=== PATIENT | female | born 1955 | race Caucasian/White ===

== ENCOUNTER → 2024-01-14 08:46 | Outpatient (REF) | payer OTHER, SELFPAY | LOC: WDC 08:46 | PROVIDERS: ATTENDING PHYSICIAN Surgery; FAMILY PHYSICIAN Family Medicine | DX: N64.4 Mastodynia (principal) | CPT/HCPCS: 76642 ==

== ENCOUNTER 2024-02-23 17:25 | Inpatient (IN) | payer OTHER, SELFPAY ==
[2024-02-23] VITALS (9 sets, daily range): BP systolic 114–168; BP diastolic 57–86; BMI 36.1
[2024-02-23 14:06] LABS: COVID-19 Antigen Negative (Negative)
--- NOTE | 2024-02-23 14:15 | ED.GENMED ---
History of Present Illness
General
Chief Complaint: Cough
Source: patient
Exam Limitations: none
Time Seen by Provider: 02/23/24 13:23
Nursing documentation reviewed up to this point in time: agreed with
History of Present Illness
History of Present Illness:
pt is a 68 y/o F with h/o COPD, hld, htn
here with dyspnea x 1 week
pt was in [place] last week and wa sdoing a lot of [employer] tours and noticed that she was hving some inc sob with exertion but just thought it was because of the tours being intensive
she then developed cold xs5 days ago: cough, congestion
got worse this week with LEA/dyspnea with conversation,
and then cough worse
called pcp an dwa put on paxlovdi after she had a covid test faint pos
she started having fever last night temp 102 this am, treated with tylenol last dose 5 am
pt has not had chest pain, leg swelling, vomiting, diarrhea
she has never had dvt/pe
no CAD history
Past History
Past History
ED Past Medical History: None
ED Past Surgical History: None (Kidney tumor removed)
Social History
Tobacco: Non-smoker
Alcohol: None
Review of Systems
Review of Systems
Allergies reviewed?: Yes
All Other Systems: Not applicable
Phy Exam
Physical Exam
Physical Exam:
GENERAL: Alert , tachypneic
EYE: pupils equal and reactive
NECK: Supple
ENT: o/p clr, mmm.
CARDIAC: Regular rate and rhythm .
LUNGS: wheezing end epx with cough, rales L base; tachypneic
ABDOMEN: Soft, without focal tenderness, no r/g, no cvat, normal bowel sounds
NEUROLOGICAL: Alert and oriented, no focal neuro deficits
SKIN: Warm and dry, skin intact.
MUSCULOSKELETAL: No edema, well perfused. neg samuel's sign
PSYCH: Normal and appropriate interaction.
Course
Orders/Labs/Results
Orders:
Orders
02/23/24 13:38
CXR2 [CR Chest - 2 Views ] Urgent
Comment:
Reason For Exam: wheezing and SOB
02/23/24 13:39
COVID-19 Antigen Urgent
Source: Nasal Swab
02/23/24 14:13
Electrocardiogram (*1) Urgent
Reason for Study: Shortness of Breath
EKG- Treatment ONCE
Ipratropium/Albuterol Sulfate [Duoneb] 3 ml INH R NOW STA
02/23/24 14:32
Basic Metabolic Panel Urgent
Complete Blood Count/With Diff Urgent
NT-proBNP Urgent
Troponin I Urgent
Influenza A+B Rapid Molecular Urgent
CARLOS Source: Nasal Swab
Specimen Description:
02/23/24 15:38
Azithromycin 500 mg/250 ml [Zithromax Infusion] 500 mg in 250 ml IV NOW
CefTRIAXone [Rocephin] 1,000 mg IV NOW STA
Dexamethasone Sod Phosphate [Decadron] 6 mg IV NOW STA
02/23/24 15:39
CMP [Comprehensive Metabolic Panel] Urgent
02/23/24 15:44
Ipratropium/Albuterol Sulfate [Duoneb] 3 ml INH R NOW STA
02/23/24 16:23
Admit/Transfer Patient As Directed
Co-Sign Provider:
Level of Care: Inpatient admission
Assign to:: Medical/Surgical
Physician / Group: reji
Diagnosis: pneumonia, copd exacerbation
Reason for Hospitalization: pneumonia, copd exacerbation
Expected length of stay greater than two midnights?: Yes
ELOS- Estimated Length of Stay in days: 2
I certify the patient meets the requirements for IP care: Yes
PRN Pain Medication Management As Directed
May give lesser potent ordered pain med per pt: Yes
preference::
Protocol:: Medication orders for pain may be administered in a
manner that supports deferring to patient preference
when the pt is:
- Requesting an ordered lesser potent pain medication.
Least to most potent pain medications are defined
as: acetaminophen < NSAID < tramadol < opioids
(morphine, oxycodone, hydromorphone).
- Requesting a lesser dose of the same medication IF
ORDERED.
- Requesting a less intrusive route of administration
if both routes are prescribed by the provider (PO <
IV).
02/23/24 16:24
Code Status As Directed
Resuscitation Status: Full Code
02/23/24 16:26
Respiratory Culture/Gram Stain Urgent
CARLOS Source: Sputum
Specimen Description:
Abnormal Lab Results
02/23/24 02/23/24
14:32 15:39
Absolute Lymphs (auto) 0.8 L 10^3/uL
(1.2-3.4)
Absolute Monos (auto) 1.4 H 10^3/uL
(0.1-0.6)
Lymphocytes % 8.7 L %
(20.5-51.1)
Monocytes % 15.6 H %
(1.7-9.3)
Carbon Dioxide 18 L mmol/L 18 L mmol/L
(22-30) (22-30)
Glucose 121 H mg/dl 116 H mg/dl
(70-99) (70-99)
02/23/24 14:32
02/23/24 15:39
Vital Signs
Initial and Last Documented VS:
Initial Vital Signs
Temp Pulse Resp BP Pulse Ox
98.3 F 85 22 168/86 92
02/23/24 12:55 02/23/24 12:55 02/23/24 12:55 02/23/24 12:55 02/23/24 12:55
Last Documented Vital Signs
Temp Pulse Resp BP Pulse Ox
98.3 F 82 22 120/62 96
02/23/24 12:55 02/23/24 16:30 02/23/24 16:30 02/23/24 16:00 02/23/24 16:30
MDM/Problems Addressed
Differential Diagnosis Includes:
pne, flu, covid, copd, PE
MDM/Problems Addressed:
68 y/o F with COPD, no home o2, nonsmoker
was in [place] last week and was having exertional dyspnea mildly with walking tours; then cold sypmtoms with cough, sore throat started 5 days ago, inc dyspnea, and now fever 102 this morning treated with tylenol
tachypneic, afebrile, hypoxic on room air 89%, on 4L and 92%, end exp wheezing and crackles specifically L base
legs nontender
wbc normal
cxr to me looks like L pna
duonebs, steroids, abx
consider PE study if still persistently hypoxic; but the cxr indep reviewed appears to have L basilar pna
*Critical Care Note
Total Time (30-74mins, 75-104mins- exclusive of procedures): Not Applicable
ED Attending Note
-
Portions of this chart may have been created with voice recognition software.� Occasional wrong word or��sound alike� substitutions may have occurred due to the inherent limitations of voice recognition software.
Discharge Plan
Departure
Patient Disposition: Admit
Date of Disposition: 02/23/24
Time of Disposition: 15:42
Admit to: IMU
Presentation/result/management discussed w/ accepting MD/DO: Hospitalist
Covid-19: Negative COVID-19
Discharge Problem:
Pneumonia, Hypoxia
Prescriptions:
No Action
furosemide 40 MG tablet
20 mg PO DAILY
metoprolol tartrate 100 MG tablet
100 mg PO BID
venlafaxine [Effexor XR] 150 MG capsule,extended release 24hr
150 mg PO BID
pantoprazole 40 MG tablet,delayed release (DR/EC)
40 mg PO DAILY
lamotrigine 100 MG tablet
200 mg PO BID
rosuvastatin 10 MG tablet
10 mg PO QPM
aripiprazole 2 MG tablet
2 mg PO DAILY
hydralazine 25 MG tablet
25 mg PO BID
amlodipine 5 MG tablet
5 mg PO BID
umeclidinium [Incruse Ellipta] 62.5 MCG blister with device
1 puff inhalation R DAILY
aspirin 81 MG tablet,delayed release (DR/EC)
81 mg PO HS
benazepril [Lotensin] 20 MG tablet
20 mg PO DAILY
albuterol sulfate 1 PUFF HFA aerosol inhaler
2 puff inhalation R QIDPRN PRN (Reason: sob)
acetaminophen 325 MG tablet
650 mg PO Q4HPRN PRN (Reason: mild pain)
alprazolam 0.25 MG tablet
0.25 mg PO HSPRN PRN (Reason: sleep)
docusate sodium 100 MG capsule
100 mg PO HS
cholecalciferol (vitamin D3) 2,000 UNITS tablet
2,000 units PO DAILY
lorazepam 1 MG tablet
1 mg PO Q4HPRN PRN (Reason: anxiety) Qty: 7 0RF
Rx Instructions:
take prior to imaging procedure
Referrals:
UNKNOWN - PT DOES,NOT KNOW [Family Provider] -
Interventions
Interventions:
*Risk Screen - Suicide Last Done: 02/23/24 12:55
*General Assessment Last Done: 02/23/24 13:35
*Neglect/Abuse Screening Last Done: 02/23/24 12:55
ED- Fall Risk Assessment Last Done: 02/23/24 14:10
*ED COVID-19 Vaccine History Last Done: 02/23/24 12:55
ED- Pulmonary Assessment Last Done: 02/23/24 13:35
Discharge Date and Time
Print Language: ROMANIAN
[2024-02-23] MEDS: DUONEB 3 ML INH ×3 (14:31→19:26)
[2024-02-23 15:08] LABS: Hematocrit 37.3 % (37.0-47.0); Hemoglobin 12.8 g/dL (12.0-16.0); Mean Corp Hgb Conc. 34.3 g/dL (33.0-37.0); Mean Corpuscular Hgb 28.3 pg (27.0-31.0); Mean Corpuscular Volume 82.5 fL (81.0-99.0); Mean Platelet Volume 8.9 fL (7.4-10.4); Platelet Count 362 10^3/uL (130-400); Red Blood Cell Count 4.52 10^6/uL (4.20-5.40); Red Cell Dist. Width 13.4 % (11.5-14.5); White Blood Cell Count 8.8 10^3/uL (4.8-10.8)
[2024-02-23 15:20] LABS: NT-proBNP 607 pg/ml; Troponin I < 0.012 ng/ml
[2024-02-23 15:31] LABS: % Basophils 0.7 % (0-2); % Eosinophils 0.1 % (0-6); % Immature Granulocytes 0.5 % (0-0.5); % Lymphocytes 8.7 % (20.5-51.1); % Monocytes 15.6 % (1.7-9.3); % Neutrophils 74.4 % (42.2-75.2); Absolute Basophils 0.1 10^3/uL (0-0.2); Absolute Lymphocytes 0.8 10^3/uL (1.2-3.4); Absolute Monocytes 1.4 10^3/uL (0.1-0.6); Absolute Neutrophils 6.5 10^3/uL (1.4-6.5); Nucleated Red Blood Cells % 0 %
[2024-02-23 15:49] LABS: Blood Urea Nitrogen 11 mg/dl (7-17); Calcium 9.3 mg/dl (8.4-10.2); Carbon Dioxide 18 mmol/L (22-30); Chloride 102 mmol/L (98-107); Estimated Creatinine Clearance 74 ml/min; Glucose 121 mg/dl (70-99); Sodium 138 mmol/L (135-145); eGFR > 60.00
[2024-02-23 16:06] LABS: ALT (SGPT) 21 U/L (0-35); AST (SGOT) 23 U/L (14-36); Albumin 4.2 g/dl (3.5-5.0); Alkaline Phosphatase 80 U/L (38-126); Blood Urea Nitrogen 11 mg/dl (7-17); Calcium 9.4 mg/dl (8.4-10.2); Carbon Dioxide 18 mmol/L (22-30); Chloride 102 mmol/L (98-107); Estimated Creatinine Clearance 74 ml/min; Glucose 116 mg/dl (70-99); Potassium 4.3 mmol/L (3.5-5.1); Sodium 140 mmol/L (135-145); Total Bilirubin 1.1 mg/dl (0.2-1.3); Total Protein 6.9 g/dl (6.3-8.2); eGFR > 60.00
[2024-02-23] MEDS: DECADRON 6 MG IV (16:11)
[2024-02-23] MEDS: ROCEPHIN 1000 MG IV (16:12)
[2024-02-23] MEDS: ZITHROMAX INFUSION 250 IV (16:12)
--- NOTE | 2024-02-23 16:28 | HPS.HSE ---
Family Physician
-
Family Physician: NOT KNOW UNKNOWN - PT DOES
Chief Complaint
-
shortness of breath, cough
History of Present Illness
68-year-old female past medical history of COPD, hypertension, hyperlipidemia presenting with productive cough, shortness of breath with exertion, chest congestion for the past 6 days which she noticed while she was on vacation in [place]. She
returned home the next day continue to have persistent symptoms. She had fever of 101 yesterday. She denies nausea vomiting or abdominal pain or diarrhea. Her sister did have COVID while on the trip. Patient herself did have some sore throat
initially but this has since resolved. She did test herself for COVID and was slightly positive on home test 3 days ago and was started on Paxlovid but was recommended to stop taking it today.
She is a former smoker. Denies alcohol use.
Medical History
Past Medical History
Past Medical History: Reports Other (COPD, hypertension, hyperlipidemia)
Past Surgical History: Reports None
Social History
Tobacco: Former Smoker
Alcohol: None
Drug: None
Family History
Family History: Not pertinent
Allergies / Home Medications
Allergies reflects when Allergies were last updated in [employer] [facility] [facility].
Home Medications with original date entered in [employer] [facility] [facility]
Allergy/Medication List:
Allergies
Allergy/AdvReac Type Severity Reaction Status Date / Time
No Known Allergies Allergy Verified 02/23/24 13:02
Home Medications
aripiprazole 2 mg tablet 2 mg PO DAILY memory 10/08/17
furosemide 40 mg tablet 20 mg PO DAILY Fluid retention/Swelling 10/08/17
lamotrigine 100 mg tablet 200 mg PO BID Seizures 10/08/17
metoprolol tartrate 100 mg tablet 100 mg PO BID Heart Failure 10/08/17
pantoprazole 40 mg tablet,delayed release 40 mg PO DAILY Gastrointestinal issue 10/08/17
rosuvastatin 10 mg tablet 10 mg PO QPM High cholesterol 10/08/17
venlafaxine 150 mg capsule,extended release 24 hr (Effexor XR) 150 mg PO BID Mental Health/Anxiety 10/08/17
amlodipine 5 mg tablet 5 mg PO BID Blood pressure 03/15/20
hydralazine 25 mg tablet 25 mg PO BID Blood pressure 03/15/20
umeclidinium 62.5 mcg/actuation blister powder for inhalation (Incruse Ellipta) 1 puff inhalation R DAILY Lung/breathing issues 03/15/20
acetaminophen 325 mg tablet 650 mg PO Q4HPRN PRN mild pain 04/01/20
albuterol sulfate 90 mcg/actuation aerosol inhaler 2 puff inhalation R QIDPRN PRN sob 04/01/20
alprazolam 0.25 mg tablet 0.25 mg PO HSPRN PRN sleep 04/01/20
aspirin 81 mg tablet,delayed release 81 mg PO HS 04/01/20
benazepril 20 mg tablet (Lotensin) 20 mg PO DAILY 04/01/20
cholecalciferol (vitamin D3) 50 mcg (2,000 unit) tablet 2,000 units PO DAILY 04/01/20
docusate sodium 100 mg capsule 100 mg PO HS 04/01/20
lorazepam 1 mg tablet 1 mg PO Q4HPRN PRN anxiety #7 tabs 07/04/21
Review of Systems
-
History Source: Patient
A 12 point ROS was completed and negative except as noted: Yes
Constitutional: Reports No Symptoms
EENT: Reports No Symptoms
Respiratory: Reports See HPI
Cardiac: Reports No Symptoms
Abdomen/GI: Reports No Symptoms
: Reports No Symptoms
Musculoskeletal: Reports No Symptoms
Skin: Reports No Symptoms
Neurological: Reports No Symptoms
Endocrine: Reports No Symptoms
Hematologic/Lymphatic: Reports No Symptoms
Psych: Reports No Symptoms
Physical Exam
Vital Signs
Vital Signs
Temp Pulse Resp BP Pulse Ox
98.3 F 91 31 140/62 93
02/23/24 12:55 02/23/24 15:37 02/23/24 15:37 02/23/24 15:37 02/23/24 15:37
Physical Exam
General: Well Developed, Well Nourished and No Apparent Distress
HEENT: NormoCephalic, Moist mucous membranes and Atraumatic
Respiratory: Wheezes and Rales
Cardiac: S1/S2 and Regular Rhythm; No Murmur or Rub
GI: Soft, Non Tender, Non Distended and Normal Bowel Sounds; No Organomegaly
Rectal: Deferred by Provider
Musculoskeletal: No Clubbing, No Cyanosis and No Edema
Skin: No Rash
Neuro: Nonfocal/grossly intact
Laboratory Results
-
02/23/24 14:32
02/23/24 15:39
Laboratory Results
Total Bilirubin 1.1 mg/dl (0.2-1.3) 02/23/24 15:39
AST 23 U/L (14-36) 02/23/24 15:39
ALT 21 U/L (0-35) 02/23/24 15:39
Alkaline Phosphatase 80 U/L (38-126) 02/23/24 15:39
Troponin I < 0.012 ng/ml 02/23/24 14:32
Data Reviewed
-
Lab Data: Labs Reviewed by me
Old Records: Reviewed
Impression/Plan
-
IMPRESSION:
PLAN:
# Left basilar pneumonia
-Left lower lobe crackles with very mild expiratory wheezing
-Patient on 4 L oxygen
-COVID-negative
-Check sputum culture
-Ceftriaxone/azithromycin
# COPD exacerbation
-DuoNebs every 6 hours
-Dexamethasone 4 mg every 12
-Mucinex
-Continue Incruse Ellipta
Essential hypertension
-Continue metoprolol, hydralazine, amlodipine
-Not compliant with aspirin, continue
Hyperlipidemia
-Continue statin
Anxiety/depression
-Continue venlafaxine, Ativan, Lamictal, aripiprazole
Former smoker
Chronic lower extremity edema
-Continue Lasix
Full code
DVT prophylaxis�heparin
Regular diet
[2024-02-23] MEDS: TYLENOL 650 MG PO (20:05)
[2024-02-23] MEDS: EFFEXOR XR 150 MG PO (20:06)
[2024-02-23] MEDS: MUCINEX 1200 MG PO (20:06)
[2024-02-23] MEDS: LOPRESSOR 100 MG PO (20:06)
[2024-02-23] MEDS: HEPARIN 5000 UNITS SC (20:07)
[2024-02-23] MEDS: NORVASC 5 MG PO (20:07)
[2024-02-23] MEDS: APRESOLINE 25 MG PO (20:07)
[2024-02-23] MEDS: LAMICTAL 200 MG PO (20:07)
[2024-02-23] MEDS: CRESTOR 10 MG PO (20:10)
[2024-02-23] MEDS: COLACE 100 MG PO (22:09)
[2024-02-23] MEDS: ASPIR LOW (ENTERIC COATED) 81 MG PO (22:09)
[2024-02-24] MEDS: DECADRON 4 MG IV ×2 (04:34→15:48)
[2024-02-24 06:23] LABS: Hematocrit 35.2 % (37.0-47.0); Mean Corp Hgb Conc. 34.1 g/dL (33.0-37.0); Mean Corpuscular Hgb 27.2 pg (27.0-31.0); Mean Corpuscular Volume 79.8 fL (81.0-99.0); Mean Platelet Volume 8.9 fL (7.4-10.4); Platelet Count 398 10^3/uL (130-400); Red Blood Cell Count 4.41 10^6/uL (4.20-5.40); Red Cell Dist. Width 13.5 % (11.5-14.5); White Blood Cell Count 7.9 10^3/uL (4.8-10.8)
[2024-02-24 06:26] LABS: Blood Urea Nitrogen 17 mg/dl (7-17); Calcium 9.3 mg/dl (8.4-10.2); Carbon Dioxide 17 mmol/L (22-30); Chloride 102 mmol/L (98-107); Estimated Creatinine Clearance 65 ml/min; Glucose 129 mg/dl (70-99); Sodium 141 mmol/L (135-145); eGFR > 60.00
[2024-02-24 07:00] VITALS: BP 149/82
[2024-02-24] MEDS: SPIRIVA RESPIMAT 2.5 MCG 2 PUFF INH (07:18)
[2024-02-24] MEDS: DUONEB 3 ML INH (07:18)
[2024-02-24 07:40] LABS: % Basophils 0.8 % (0-2); % Immature Granulocytes 0.5 % (0-0.5); % Lymphocytes 8.2 % (20.5-51.1); % Monocytes 7.4 % (1.7-9.3); % Neutrophils 83.1 % (42.2-75.2); Absolute Basophils 0.1 10^3/uL (0-0.2); Absolute Lymphocytes 0.7 10^3/uL (1.2-3.4); Absolute Monocytes 0.6 10^3/uL (0.1-0.6); Absolute Neutrophils 6.6 10^3/uL (1.4-6.5); Nucleated Red Blood Cells % 0 %
[2024-02-24] MEDS: MUCINEX 1200 MG PO ×2 (08:14→21:09)
[2024-02-24] MEDS: EFFEXOR XR 150 MG PO ×2 (08:14→21:10)
[2024-02-24] MEDS: VITAMIN D3 (cholecalciferol) 50 MCG PO (08:14)
[2024-02-24] MEDS: ABILIFY 2 MG PO (08:14)
[2024-02-24] MEDS: APRESOLINE 25 MG PO ×2 (08:14→21:10)
[2024-02-24] MEDS: LASIX 20 MG PO (08:14)
[2024-02-24] MEDS: NORVASC 5 MG PO ×2 (08:14→21:10)
[2024-02-24] MEDS: LOPRESSOR 100 MG PO ×2 (08:15→21:10)
[2024-02-24] MEDS: HEPARIN 5000 UNITS SC ×2 (08:15→21:09)
[2024-02-24] MEDS: LAMICTAL 200 MG PO ×2 (08:15→21:10)
--- NOTE | 2024-02-24 10:31 | W.PN.HOSP.TC ---
Today's Communication/Plan
-
continue current treatment without change. Follow improvement. Wean oxygen as able.
Assessment / Plan
Assessment / Plan
# Left basilar vmwuamtci-ukpoingjo-vzduhmun
associated acute hypoxic respiratory insufficiency
-Patient on 4 L oxygen
-COVID-negative x 2.
-Check sputum culture
-CW Ceftriaxone/azithromycin
# Acute COPD exacerbation
-DuoNebs every 6 hours
-Dexamethasone 4 mg every 12
-Mucinex
-Continue Incruse Ellipta
Essential hypertension
-Continue metoprolol, hydralazine, amlodipine
-Not compliant with aspirin, continue
Hyperlipidemia
-Continue statin
Anxiety/depression
-Continue venlafaxine, Ativan, Lamictal, aripiprazole
Former smoker
Chronic lower extremity edema
-Continue Lasix
Full code
DVT prophylaxis�heparin
Regular diet
Anticipated Discharge: 24 - 48 hours
Subjective/Interval History
-
Date of Service: February 24, 2024
feeling bit better. Able to take deeper breaths without coughing today.
No chest. No chest pain. No nausea vomiting. No fevers.
Her symptoms started Sunday last week with sore throat and runny nose. She checked a COVID test on Sunday This week and she thinks may be weakly positive but then on of this week it was negative. Sister and mother friend who was
with her in the trip were positive for COVID. A COVID test on admission was negative.
Objective Data
-
Labs:
Laboratory Results
02/24/24
05:07
WBC 7.9
Hgb 12.0
Hct 35.2 L
Plt Count 398
Sodium 141
Potassium 4.0
Chloride 102
Carbon Dioxide 17 L
BUN 17
Creatinine 0.8
Glucose 129 H
Calcium 9.3
Vital Signs:
Vital Signs
Temp Pulse Resp BP Pulse Ox
98.0 F 96 18 149/82 92
02/24/24 07:00 02/24/24 08:14 02/24/24 07:24 02/24/24 08:14 02/24/24 07:24
I&O
02/23/24 02/24/24 02/25/24
06:59 06:59 06:59
Intake Total 480 / 480
Balance 480 / 480
Review of Systems
-
Constitutional: Denies Fever
EENT: Denies Sore Throat
Respiratory: Reports Cough and Trouble Breathing
Cardiac: Denies Chest Pain
Abdomen/GI: Denies Abdominal Pain, Nausea or Vomiting
Neuro: Denies Dizzy
Physical Exam
-
General: No Apparent Distress
HEENT: Moist Mucous Membranes
Respiratory: Wheezes (BL), Crackles (left base) and Non Labored Respirations; Negative Accessory Resp Muscle Use
Cardiac: Regular Rhythm and S1/S2
GI: Soft
Neuro: AO x 3
Data Reviewed
-
Labs: Labs Reviewed by me
[2024-02-24] MEDS: DUONEB INH (11:14)
[2024-02-24] MEDS: ProAIR HFA INHALER INH (11:23)
--- NOTE | 2024-02-24 11:40 | CM ---
CM met with patient in room. CM confirmed demographics. Patient lives independently with her who she provides care to. Patient denied history of VN, SNF or DME. Patient is active with her PCP. Patient had medication coverage and uses
[facility] for medication services.
Patient expressed concern regarding her . Patient stated that he has Parkinson's and is tube fed. Patient's is able to care for the tube feeding, but patient is concerned that he will need additional supervision. CM provided patient
with the number for ROSALBA Schroedersenior policy analyst from [facility] to discuss private pay caregivers. Patient was appreciative for the information.
Patient was also given Advanced Directive information.
PLAN: home no needs.
[2024-02-24] MEDS: ProAIR HFA INHALER 2 PUFF INH ×2 (15:03→19:35)
[2024-02-24 15:45] VITALS: BP 116/74
[2024-02-24] MEDS: ROCEPHIN 1000 MG IV (15:48)
[2024-02-24] MEDS: ZITHROMAX INFUSION 250 IV (15:48)
[2024-02-24] MEDS: CRESTOR 10 MG PO (17:21)
[2024-02-24 21:05] VITALS: BP 142/75
[2024-02-24] MEDS: COLACE 100 MG PO (21:10)
[2024-02-24] MEDS: ASPIR LOW (ENTERIC COATED) 81 MG PO (21:10)
[2024-02-24] MEDS: XANAX 0.25 MG PO (22:42)
[2024-02-24 23:03] VITALS: BP 144/78
[2024-02-25] MEDS: DECADRON 4 MG IV ×2 (04:49→17:00)
[2024-02-25 07:00] VITALS: BP 130/75
[2024-02-25] MEDS: ProAIR HFA INHALER 2 PUFF INH ×3 (07:26→15:51)
[2024-02-25] MEDS: SPIRIVA RESPIMAT 2.5 MCG 2 PUFF INH (07:27)
[2024-02-25] MEDS: MUCINEX 1200 MG PO ×2 (10:28→22:06)
[2024-02-25] MEDS: EFFEXOR XR 150 MG PO ×2 (10:28→22:05)
[2024-02-25] MEDS: LASIX 20 MG PO (10:29)
[2024-02-25] MEDS: NORVASC 5 MG PO ×2 (10:29→22:06)
[2024-02-25] MEDS: ABILIFY 2 MG PO (10:29)
[2024-02-25] MEDS: VITAMIN D3 (cholecalciferol) 50 MCG PO (10:29)
[2024-02-25] MEDS: LAMICTAL 200 MG PO ×2 (10:29→22:06)
[2024-02-25] MEDS: APRESOLINE 25 MG PO ×2 (10:29→22:05)
[2024-02-25] MEDS: HEPARIN 5000 UNITS SC ×2 (10:30→22:05)
[2024-02-25] MEDS: LOPRESSOR 100 MG PO ×2 (10:30→22:06)
--- NOTE | 2024-02-25 11:40 | W.PN.HOSP.TC ---
Today's Communication/Plan
-
Monitor vital signs see plan
Continue with antibiotics
Continue with steroids
Wean oxygen as tolerated
Assessment / Plan
Assessment / Plan
# Left basilar efvbvwger-plpwnhccv-dryzemie
associated acute hypoxic respiratory insufficiency
-Patient on 3 L oxygen; wean oxygen as tolerated
-COVID-negative x 2.
-Check sputum culture
-CW Ceftriaxone/azithromycin
# Acute COPD exacerbation
-DuoNebs every 6 hours
-Dexamethasone 4 mg every 12
-Mucinex
-Continue Incruse Ellipta
Essential hypertension
-Continue metoprolol, hydralazine, amlodipine
-Not compliant with aspirin, continue
Hyperlipidemia
-Continue statin
Anxiety/depression
-Continue venlafaxine, Ativan, Lamictal, aripiprazole
Former smoker
Chronic lower extremity edema
-Continue Lasix
Full code
DVT prophylaxis�heparin
General: No Apparent Distress
HEENT: Moist Mucous Membranes
Respiratory: Wheezes (BL), Crackles (left base) and Non Labored Respirations; Negative Accessory Resp Muscle Use
Cardiac: Regular Rhythm and S1/S2
GI: Soft
Neuro: AO x 3
Anticipated Discharge: 24 - 48 hours
Subjective/Interval History
-
Date of Service: February 25, 2024
denies chest pain
Objective Data
-
Vital Signs:
Vital Signs
Temp Pulse Resp BP Pulse Ox
97.9 F 69 20 130/75 96
02/25/24 07:00 02/25/24 11:20 02/25/24 11:20 02/25/24 10:30 02/25/24 11:20
I&O
02/24/24 02/25/24 02/26/24
06:59 06:59 06:59
Intake Total 480 / 480 1380 / 1380
Balance 480 / 480 1380 / 1380
--- NOTE | 2024-02-25 12:00 | CM ---
Met with patient at bedside.
Cont on 02, abx, steroids
no needs anticipated currently.
PLAN: Discharge to home when stable, no needs anticipated currently
[2024-02-25 12:30] LABS: COVID-19 Antigen Negative (Negative)
[2024-02-25 15:00] VITALS: BP 127/66
[2024-02-25] MEDS: ZITHROMAX INFUSION 250 IV (17:26)
[2024-02-25] MEDS: CRESTOR 10 MG PO (17:27)
[2024-02-25] MEDS: ROCEPHIN 1000 MG IV (17:28)
[2024-02-25] MEDS: STERILE WATER FOR INJECTION 10 ML IV (17:32)
[2024-02-25] MEDS: VENTOLIN NEBULES 2.5 MG INH (20:05)
[2024-02-25] MEDS: COLACE 100 MG PO (22:06)
[2024-02-25] MEDS: ASPIR LOW (ENTERIC COATED) 81 MG PO (22:06)
[2024-02-25] MEDS: XANAX 0.25 MG PO (22:06)
[2024-02-25 23:49] VITALS: BP 142/71
[2024-02-26] MEDS: DECADRON 4 MG IV ×2 (04:11→16:21)
[2024-02-26 05:44] VITALS: BMI 37.2
[2024-02-26 06:37] LABS: Hematocrit 36.4 % (37.0-47.0); Hemoglobin 12.1 g/dL (12.0-16.0); Mean Corp Hgb Conc. 33.2 g/dL (33.0-37.0); Mean Corpuscular Hgb 27.9 pg (27.0-31.0); Mean Corpuscular Volume 83.9 fL (81.0-99.0); Mean Platelet Volume 8.9 fL (7.4-10.4); Platelet Count 487 10^3/uL (130-400); Red Blood Cell Count 4.34 10^6/uL (4.20-5.40); Red Cell Dist. Width 13.7 % (11.5-14.5); White Blood Cell Count 10.3 10^3/uL (4.8-10.8)
[2024-02-26 07:00] VITALS: BP 152/77
[2024-02-26 07:03] LABS: Blood Urea Nitrogen 35 mg/dl (7-17); Calcium 9.5 mg/dl (8.4-10.2); Carbon Dioxide 20 mmol/L (22-30); Chloride 105 mmol/L (98-107); Estimated Creatinine Clearance 66 ml/min; Glucose 137 mg/dl (70-99); Potassium 4.6 mmol/L (3.5-5.1); Sodium 143 mmol/L (135-145); eGFR > 60.00
[2024-02-26 07:12] LABS: % Basophils 0.8 % (0-2); % Immature Granulocytes 5.1 % (0-0.5); % Lymphocytes 11.8 % (20.5-51.1); % Monocytes 4.8 % (1.7-9.3); % Neutrophils 77.5 % (42.2-75.2); Absolute Basophils 0.1 10^3/uL (0-0.2); Absolute Immature Granulocytes 0.5 10^3/uL (0-0.05); Absolute Lymphocytes 1.2 10^3/uL (1.2-3.4); Absolute Monocytes 0.5 10^3/uL (0.1-0.6); Nucleated Red Blood Cells % 0 %
[2024-02-26] MEDS: SPIRIVA RESPIMAT 2.5 MCG 2 PUFF INH (08:08)
[2024-02-26] MEDS: VENTOLIN NEBULES 2.5 MG INH ×4 (08:08→20:20)
[2024-02-26] MEDS: LAMICTAL 200 MG PO ×2 (08:21→20:51)
[2024-02-26] MEDS: ABILIFY 2 MG PO (08:21)
[2024-02-26] MEDS: LOPRESSOR 100 MG PO ×2 (08:21→20:51)
[2024-02-26] MEDS: LASIX 20 MG PO (08:21)
[2024-02-26] MEDS: VITAMIN D3 (cholecalciferol) 50 MCG PO (08:21)
[2024-02-26] MEDS: MUCINEX 1200 MG PO ×2 (08:22→20:52)
[2024-02-26] MEDS: HEPARIN 5000 UNITS SC ×2 (08:22→20:50)
[2024-02-26] MEDS: APRESOLINE 25 MG PO ×2 (08:22→20:51)
[2024-02-26] MEDS: NORVASC 5 MG PO ×2 (08:22→20:52)
[2024-02-26] MEDS: EFFEXOR XR 150 MG PO ×2 (08:22→20:51)
--- NOTE | 2024-02-26 11:28 | W.PN.HOSP.TC ---
Today's Communication/Plan
-
Monitor vital signs see plan
Wean oxygen as tolerated
Add Tessalon Perles
Continue with Decadron, albuterol
Assessment / Plan
Assessment / Plan
# Left basilar hjjkgplxd-rrlzqgbkv-tuodmfig
associated acute hypoxic respiratory insufficiency
-Patient on 3 L oxygen; wean oxygen as tolerated
-COVID-negative x 2.
-Check sputum culture
-CW Ceftriaxone/azithromycin
# Acute COPD exacerbation
-DuoNebs every 6 hours
-Dexamethasone 4 mg every 12
-Mucinex, tessalon pearls
-Continue Incruse Ellipta
Essential hypertension
-Continue metoprolol, hydralazine, amlodipine
-Not compliant with aspirin, continue
Hyperlipidemia
-Continue statin
Anxiety/depression
-Continue venlafaxine, Ativan, Lamictal, aripiprazole
Former smoker
Chronic lower extremity edema
-Continue Lasix
Full code
DVT prophylaxis�heparin
General: No Apparent Distress
HEENT: Moist Mucous Membranes
Respiratory: Wheezes (BL), Crackles (left base) and Non Labored Respirations; Negative Accessory Resp Muscle Use
Cardiac: Regular Rhythm and S1/S2
GI: Soft
Neuro: AO x 3
Anticipated Discharge: 24 - 48 hours
Subjective/Interval History
-
Date of Service: February 26, 2024
denies pain
Objective Data
-
Labs:
Laboratory Results
02/26/24
05:15
WBC 10.3
Hgb 12.1
Hct 36.4 L
Plt Count 487 H D
Sodium 143
Potassium 4.6
Chloride 105
Carbon Dioxide 20 L
BUN 35 H
Creatinine 0.8
Glucose 137 H
Calcium 9.5
Vital Signs:
Vital Signs
Temp Pulse Resp BP Pulse Ox
98.0 F 74 18 152/77 96
02/26/24 07:00 02/26/24 08:22 02/26/24 08:22 02/26/24 07:00 02/26/24 08:22
I&O
02/25/24 02/26/24 02/27/24
06:59 06:59 06:59
Intake Total 1380 / 1380 1320 / 1320
Balance 1380 / 1380 1320 / 1320
[2024-02-26] MEDS: TESSALON PERLES 200 MG PO ×3 (12:29→21:07)
--- NOTE | 2024-02-26 12:50 | CM ---
Met with patient at bedside.
Discussion of home health. Options given.
Prefers [facility]. Referral placed in [facility].
Case management consult completed for VN
PLAN: Home, VN
[2024-02-26 15:00] VITALS: BP 159/81
[2024-02-26] MEDS: STERILE WATER FOR INJECTION 10 ML IV (16:21)
[2024-02-26] MEDS: ROCEPHIN 1000 MG IV (16:21)
[2024-02-26] MEDS: CRESTOR 10 MG PO (16:22)
[2024-02-26] MEDS: ZITHROMAX INFUSION 250 IV (17:32)
[2024-02-26] MEDS: COLACE 100 MG PO (21:07)
[2024-02-26] MEDS: ASPIR LOW (ENTERIC COATED) 81 MG PO (21:07)
[2024-02-26] MEDS: SENOKOT 8.6 MG PO (21:07)
[2024-02-26] MEDS: XANAX 0.25 MG PO (21:09)
[2024-02-26] MEDS: MELATONIN 5 MG PO (22:58)
[2024-02-26 23:03] VITALS: BP 130/75
[2024-02-27] MEDS: DECADRON 4 MG IV ×2 (04:20→17:42)
[2024-02-27 05:26] VITALS: BMI 37.7
[2024-02-27 06:00] VITALS: BMI 37.7
[2024-02-27 07:50] VITALS: BP 146/78
[2024-02-27 08:15] LABS: Hematocrit 36.4 % (37.0-47.0); Hemoglobin 12.1 g/dL (12.0-16.0); Mean Corp Hgb Conc. 33.2 g/dL (33.0-37.0); Mean Corpuscular Hgb 27.9 pg (27.0-31.0); Mean Corpuscular Volume 84.1 fL (81.0-99.0); Mean Platelet Volume 8.8 fL (7.4-10.4); Platelet Count 495 10^3/uL (130-400); Red Blood Cell Count 4.33 10^6/uL (4.20-5.40); Red Cell Dist. Width 13.6 % (11.5-14.5); White Blood Cell Count 9.9 10^3/uL (4.8-10.8)
[2024-02-27] MEDS: SPIRIVA RESPIMAT 2.5 MCG 2 PUFF INH (08:19)
[2024-02-27] MEDS: VENTOLIN NEBULES 2.5 MG INH ×4 (08:20→19:58)
[2024-02-27 08:26] LABS: % Basophils 0.8 % (0-2); % Immature Granulocytes 8.5 % (0-0.5); % Lymphocytes 12.1 % (20.5-51.1); % Neutrophils 72.6 % (42.2-75.2); Absolute Basophils 0.1 10^3/uL (0-0.2); Absolute Immature Granulocytes 0.8 10^3/uL (0-0.05); Absolute Lymphocytes 1.2 10^3/uL (1.2-3.4); Absolute Monocytes 0.6 10^3/uL (0.1-0.6); Absolute Neutrophils 7.2 10^3/uL (1.4-6.5); Nucleated Red Blood Cells % 0.2 %
[2024-02-27] MEDS: SENOKOT 8.6 MG PO ×2 (08:32→20:53)
[2024-02-27] MEDS: LAMICTAL 200 MG PO ×2 (08:32→20:55)
[2024-02-27] MEDS: EFFEXOR XR 150 MG PO ×2 (08:32→20:54)
[2024-02-27] MEDS: MUCINEX 1200 MG PO ×2 (08:32→20:54)
[2024-02-27] MEDS: ABILIFY 2 MG PO (08:32)
[2024-02-27] MEDS: VITAMIN D3 (cholecalciferol) 50 MCG PO (08:33)
[2024-02-27] MEDS: LOPRESSOR 100 MG PO ×2 (08:33→20:55)
[2024-02-27] MEDS: TESSALON PERLES 200 MG PO ×3 (08:33→22:00)
[2024-02-27] MEDS: LASIX 20 MG PO (08:39)
[2024-02-27] MEDS: APRESOLINE 25 MG PO ×2 (08:39→20:55)
[2024-02-27] MEDS: HEPARIN 5000 UNITS SC ×2 (08:39→20:54)
[2024-02-27] MEDS: NORVASC 5 MG PO ×2 (08:39→20:54)
[2024-02-27 09:13] LABS: Blood Urea Nitrogen 36 mg/dl (7-17); Calcium 9.4 mg/dl (8.4-10.2); Carbon Dioxide 23 mmol/L (22-30); Chloride 102 mmol/L (98-107); Estimated Creatinine Clearance 59 ml/min; Glucose 132 mg/dl (70-99); Potassium 4.9 mmol/L (3.5-5.1); Sodium 142 mmol/L (135-145); eGFR > 60.00
[2024-02-27 09:50] VITALS: BP 152/81
--- NOTE | 2024-02-27 10:00 | FALL ---
Description of Fall:
Pt bathroom emergency ely going off. Pt found on bathroom floor and stated she had fallen to the side when trying to put her sock of her foot in the bathroom. Pt also stated that she hit her head on the paper towel dispenser. VSS. AAOx3.
notified.
Injuries Noted:
No visual injuries noted pt reports mild discomfort on back of head.
Action Taken:
Ice pack given for mild pain on back of head aware.
Name of Provider Notified:
MD Hebert, CT of head ordered
[2024-02-27 11:33] VITALS: BP 142/76
[2024-02-27] MEDS: TYLENOL 650 MG PO ×2 (11:42→17:41)
--- NOTE | 2024-02-27 12:05 | W.PN.HOSP.TC ---
Today's Communication/Plan
-
Monitor vital signs see plan
Continue with steroids, nebs
Continue to biotics
CT head
Assessment / Plan
Assessment / Plan
# Left basilar glfypmdkr-uasscpkcm-emgllzpk
associated acute hypoxic respiratory insufficiency
-Patient on 2-3 L oxygen; wean oxygen as tolerated
-COVID-negative x 2.
-Check sputum culture
-CW Ceftriaxone/azithromycin
# Acute COPD exacerbation
-DuoNebs every 6 hours
-Dexamethasone 4 mg every 12
-Mucinex, tessalon pearls
-Continue Incruse Ellipta
fall 02/26; hit her head
mechanical fall
VS stable; denies dizziness.mild headache. no bruising. check CT head
Essential hypertension
-Continue metoprolol, hydralazine, amlodipine
-Not compliant with aspirin, continue
Hyperlipidemia
-Continue statin
Anxiety/depression
-Continue venlafaxine, Ativan, Lamictal, aripiprazole
Former smoker
Chronic lower extremity edema
-Continue Lasix
Full code
DVT prophylaxis�heparin
General: No Apparent Distress
HEENT: Moist Mucous Membranes
Respiratory: Wheezes (BL), Crackles (left base) and Non Labored Respirations; Negative Accessory Resp Muscle Use
Cardiac: Regular Rhythm and S1/S2
GI: Soft
Neuro: AO x 3
Anticipated Discharge: 24 - 48 hours
Subjective/Interval History
-
Date of Service: February 27, 2024
fell this morning
Objective Data
-
Labs:
Laboratory Results
02/27/24
06:19
WBC 9.9
Hgb 12.1
Hct 36.4 L
Plt Count 495 H
Sodium 142
Potassium 4.9
Chloride 102
Carbon Dioxide 23
BUN 36 H
Creatinine 0.9
Glucose 132 H
Calcium 9.4
Vital Signs:
Vital Signs
Temp Pulse Resp BP Pulse Ox
97.8 F 63 16 142/76 93
02/27/24 11:33 02/27/24 11:33 02/27/24 11:33 02/27/24 11:33 02/27/24 11:33
I&O
02/26/24 02/27/24 02/28/24
06:59 06:59 06:59
Intake Total 1320 / 1320 1260 / 1260
Balance 1320 / 1320 1260 / 1260
[2024-02-27 15:23] VITALS: BP 145/83
[2024-02-27] MEDS: ZITHROMAX INFUSION 250 IV (17:00)
[2024-02-27] MEDS: ROCEPHIN 1000 MG IV (17:00)
[2024-02-27] MEDS: STERILE WATER FOR INJECTION 10 ML IV (17:00)
[2024-02-27] MEDS: CRESTOR 10 MG PO (17:40)
[2024-02-27] MEDS: COLACE 100 MG PO (22:00)
[2024-02-27] MEDS: ASPIR LOW (ENTERIC COATED) 81 MG PO (22:00)
[2024-02-27] MEDS: XANAX 0.25 MG PO (22:00)
[2024-02-27 23:21] VITALS: BP 145/73
[2024-02-28] MEDS: DECADRON 4 MG IV ×3 (04:58→23:43)
[2024-02-28 06:10] LABS: Hemoglobin 12.3 g/dL (12.0-16.0); Mean Corp Hgb Conc. 34.2 g/dL (33.0-37.0); Mean Corpuscular Hgb 28.1 pg (27.0-31.0); Mean Corpuscular Volume 82.4 fL (81.0-99.0); Mean Platelet Volume 8.7 fL (7.4-10.4); Platelet Count 503 10^3/uL (130-400); Red Blood Cell Count 4.37 10^6/uL (4.20-5.40); Red Cell Dist. Width 13.3 % (11.5-14.5); White Blood Cell Count 11.8 10^3/uL (4.8-10.8)
[2024-02-28 06:34] LABS: Blood Urea Nitrogen 32 mg/dl (7-17); Calcium 9.3 mg/dl (8.4-10.2); Carbon Dioxide 24 mmol/L (22-30); Chloride 105 mmol/L (98-107); Estimated Creatinine Clearance 59 ml/min; Glucose 123 mg/dl (70-99); Potassium 4.8 mmol/L (3.5-5.1); Sodium 141 mmol/L (135-145); eGFR > 60.00
[2024-02-28 06:50] LABS: % Basophils 0.8 % (0-2); % Immature Granulocytes 8.9 % (0-0.5); % Lymphocytes 12.1 % (20.5-51.1); % Monocytes 7.8 % (1.7-9.3); % Neutrophils 70.4 % (42.2-75.2); Absolute Basophils 0.1 10^3/uL (0-0.2); Absolute Immature Granulocytes 1.1 10^3/uL (0-0.05); Absolute Lymphocytes 1.4 10^3/uL (1.2-3.4); Absolute Monocytes 0.9 10^3/uL (0.1-0.6); Absolute Neutrophils 8.3 10^3/uL (1.4-6.5); Nucleated Red Blood Cells % 0.3 %
[2024-02-28] MEDS: SPIRIVA RESPIMAT 2.5 MCG 2 PUFF INH (07:24)
[2024-02-28] MEDS: VENTOLIN NEBULES 2.5 MG INH ×4 (07:24→19:21)
[2024-02-28 08:00] VITALS: BP 146/77
[2024-02-28] MEDS: LAMICTAL 200 MG PO ×2 (08:11→21:35)
[2024-02-28] MEDS: APRESOLINE 25 MG PO ×2 (08:11→21:35)
[2024-02-28] MEDS: ABILIFY 2 MG PO (08:11)
[2024-02-28] MEDS: MUCINEX 1200 MG PO ×2 (08:11→21:34)
[2024-02-28] MEDS: EFFEXOR XR 150 MG PO ×2 (08:11→21:35)
[2024-02-28] MEDS: LASIX 20 MG PO (08:11)
[2024-02-28] MEDS: VITAMIN D3 (cholecalciferol) 50 MCG PO (08:12)
[2024-02-28] MEDS: LOPRESSOR 100 MG PO ×2 (08:12→21:34)
[2024-02-28] MEDS: NORVASC 5 MG PO ×2 (08:12→21:36)
[2024-02-28] MEDS: SENOKOT 8.6 MG PO ×2 (08:12→21:35)
[2024-02-28] MEDS: HEPARIN 5000 UNITS SC ×2 (08:12→21:34)
[2024-02-28] MEDS: TESSALON PERLES 200 MG PO ×3 (08:12→21:34)
[2024-02-28] MEDS: TYLENOL 650 MG PO (10:23)
--- NOTE | 2024-02-28 11:19 | W.PN.HOSP.TC ---
Today's Communication/Plan
-
Monitor vital signs
see plan
Increase Decadron
Continue with cough medications
Antibiotics
Assessment / Plan
Assessment / Plan
# Left basilar oqmzxjkjp-jzxfrlarx-txghkgvk
associated acute hypoxic respiratory insufficiency
-Patient on 2-3 L oxygen; wean oxygen as tolerated
-COVID-negative x 2.
-Check sputum culture
-CW Ceftriaxone/azithromycin
# Acute COPD exacerbation
-DuoNebs every 6 hours
increase decadron to 4 Q8
-Mucinex, tessalon pearls
-Continue Incruse Ellipta
fall 02/26; hit her head
mechanical fall
VS stable; denies dizziness.mild headache. no bruising. CT head neg for bleed
Essential hypertension
-Continue metoprolol, hydralazine, amlodipine
-Not compliant with aspirin, continue
Hyperlipidemia
-Continue statin
Anxiety/depression
-Continue venlafaxine, Ativan, Lamictal, aripiprazole
Former smoker
Chronic lower extremity edema
-Continue Lasix
Full code
DVT prophylaxis�heparin
General: No Apparent Distress
HEENT: Moist Mucous Membranes
Respiratory: Wheezes (BL) and Non Labored Respirations; Negative Accessory Resp Muscle Use
Cardiac: Regular Rhythm and S1/S2
GI: Soft
Neuro: AO x 3
Anticipated Discharge: Within 24 hours
Subjective/Interval History
-
Date of Service: February 28, 2024
still with sob and cough
Objective Data
-
Labs:
Laboratory Results
02/28/24
05:27
WBC 11.8 H
Hgb 12.3
Hct 36.0 L
Plt Count 503 H
Sodium 141
Potassium 4.8
Chloride 105
Carbon Dioxide 24
BUN 32 H
Creatinine 0.9
Glucose 123 H
Calcium 9.3
Vital Signs:
Vital Signs
Temp Pulse Resp BP Pulse Ox
98.1 F 74 16 146/77 96
02/28/24 08:00 02/28/24 08:00 02/28/24 08:00 02/28/24 08:00 02/28/24 08:00
I&O
02/27/24 02/28/24 02/29/24
06:59 06:59 06:59
Intake Total 1260 / 1260 1859
Balance 1260 / 1260 1859
--- NOTE | 2024-02-28 11:34 | CM ---
Patient seen at bedside.
CT head negative Post fall yesterday
Decadron increased to Q8H
Cont cough medications
Cont with abx
PLAN: Home with [facility]
family to transport
[2024-02-28 16:07] VITALS: BP 132/69
[2024-02-28] MEDS: ROCEPHIN 1000 MG IV (17:07)
[2024-02-28] MEDS: STERILE WATER FOR INJECTION 10 ML IV (17:07)
[2024-02-28] MEDS: ZITHROMAX INFUSION 250 IV (17:19)
[2024-02-28] MEDS: CRESTOR 10 MG PO (17:31)
[2024-02-28] MEDS: ASPIR LOW (ENTERIC COATED) 81 MG PO (21:35)
[2024-02-28] MEDS: COLACE 100 MG PO (21:36)
[2024-02-28] MEDS: XANAX 0.25 MG PO (21:36)
[2024-02-28 23:05] VITALS: BP 138/74
[2024-02-29 05:28] VITALS: BMI 37.4
[2024-02-29 06:06] LABS: Hematocrit 35.3 % (37.0-47.0); Hemoglobin 11.7 g/dL (12.0-16.0); Mean Corp Hgb Conc. 33.1 g/dL (33.0-37.0); Mean Corpuscular Volume 81.3 fL (81.0-99.0); Mean Platelet Volume 8.6 fL (7.4-10.4); Platelet Count 495 10^3/uL (130-400); Red Blood Cell Count 4.34 10^6/uL (4.20-5.40); Red Cell Dist. Width 13.5 % (11.5-14.5)
[2024-02-29 06:42] LABS: Blood Urea Nitrogen 29 mg/dl (7-17); Calcium 9.2 mg/dl (8.4-10.2); Carbon Dioxide 24 mmol/L (22-30); Chloride 104 mmol/L (98-107); Estimated Creatinine Clearance 66 ml/min; Glucose 144 mg/dl (70-99); Potassium 5.2 mmol/L (3.5-5.1); Sodium 140 mmol/L (135-145); eGFR > 60.00
[2024-02-29 07:00] VITALS: BP 155/74
[2024-02-29] MEDS: VENTOLIN NEBULES 2.5 MG INH ×4 (07:18→20:10)
[2024-02-29] MEDS: SPIRIVA RESPIMAT 2.5 MCG 2 PUFF INH (07:18)
[2024-02-29 07:36] LABS: Absolute Neutrophils -Man Diff 9.3 10^3/uL (1.4-6.5); Band Neutrophils 2 % (0-3); Lymphocytes 8 % (20-51); Metamyelocytes 2 % (-); Monocytes 5 % (2-9); Segmented Neutrophils 83 % (42-75); Total Cells Counted 100
[2024-02-29 07:37] LABS: Normal RBC Morphology Yes; Platelets Checked Yes
[2024-02-29] MEDS: TESSALON PERLES 200 MG PO (08:45)
[2024-02-29] MEDS: VITAMIN D3 (cholecalciferol) 50 MCG PO (08:45)
[2024-02-29] MEDS: EFFEXOR XR 150 MG PO ×2 (08:45→20:31)
[2024-02-29] MEDS: SENOKOT 8.6 MG PO ×2 (08:45→20:30)
[2024-02-29] MEDS: LAMICTAL 200 MG PO ×2 (08:45→20:31)
[2024-02-29] MEDS: MUCINEX 1200 MG PO (08:45)
[2024-02-29] MEDS: ABILIFY 2 MG PO (08:45)
[2024-02-29] MEDS: DECADRON 4 MG IV ×3 (08:46→23:58)
[2024-02-29] MEDS: HEPARIN 5000 UNITS SC ×2 (08:47→20:32)
[2024-02-29] MEDS: LASIX 20 MG PO (08:47)
[2024-02-29] MEDS: NORVASC 5 MG PO ×2 (08:47→20:31)
[2024-02-29] MEDS: LOPRESSOR 100 MG PO ×2 (08:47→20:31)
[2024-02-29] MEDS: APRESOLINE 25 MG PO ×2 (08:48→20:30)
[2024-02-29] MEDS: TYLENOL 650 MG PO (10:34)
[2024-02-29] MEDS: ROBITUSSIN 200 MG PO ×4 (11:02→21:54)
--- NOTE | 2024-02-29 11:33 | W.PN.HOSP.TC ---
Today's Communication/Plan
-
Monitor vital signs
see plan
Slowly improving, however still with significant cough and wheezing
Continue steroid, nebs
Add Robitussin
Assessment / Plan
Assessment / Plan
# Left basilar thjodojaj-snqnwzhrr-yolpnegi
associated acute hypoxic respiratory insufficiency
-Patient was on 2-3 L oxygen; wean oxygen as tolerated. now on room air
Still has significant cough, decreased Mucinex and Robitussin. Continue with Tessalon Perles
-COVID-negative x 2.
-Check sputum culture if able
-CW Ceftriaxone/azithromycin
# Acute COPD exacerbation
-DuoNebs every 6 hours
cw decadron to 4 Q8
-Mucinex, tessalon pearls
-Continue Incruse Ellipta
Mild hyperkalemia
Monitor
fall 02/26; hit her head
mechanical fall
VS stable; denies dizziness.mild headache. no bruising. CT head neg for bleed
Essential hypertension
-Continue metoprolol, hydralazine, amlodipine
-Not compliant with aspirin, continue
Hyperlipidemia
-Continue statin
Anxiety/depression
-Continue venlafaxine, Ativan, Lamictal, aripiprazole
Former smoker
Chronic lower extremity edema
-Continue Lasix
Full code
DVT prophylaxis�heparin
General: No Apparent Distress
HEENT: Moist Mucous Membranes
Respiratory: Wheezes (BL) and Non Labored Respirations; Negative Accessory Resp Muscle Use
Cardiac: Regular Rhythm and S1/S2
GI: Soft
Neuro: AO x 3
Anticipated Discharge: Within 24 hours
Subjective/Interval History
-
Date of Service: February 29, 2024
denies pain
Objective Data
-
Labs:
Laboratory Results
02/29/24
05:13
WBC 11.0 H
Hgb 11.7 L
Hct 35.3 L
Plt Count 495 H
Sodium 140
Potassium 5.2 H
Chloride 104
Carbon Dioxide 24
BUN 29 H
Creatinine 0.8
Glucose 144 H
Calcium 9.2
Vital Signs:
Vital Signs
Temp Pulse Resp BP Pulse Ox
98.2 F 68 16 155/74 95
02/29/24 07:00 02/29/24 11:20 02/29/24 11:20 02/29/24 08:48 02/29/24 11:20
I&O
02/28/24 02/29/24 03/01/24
06:59 06:59 06:59
Intake Total 1860 / 1860 2400 / 2400
Balance 1860 / 1860 2400 / 2400
--- NOTE | 2024-02-29 11:47 | CM ---
Met with patient at bedside.
IMM explained & signed.
[facility] Referral in [facility].
PLAN: Home with [facility]
family to transport
[facility] Fax #: [phone]
[2024-02-29] MEDS: ZITHROMAX 500 MG PO (12:03)
[2024-02-29 15:00] VITALS: BP 138/72
[2024-02-29] MEDS: ROCEPHIN 1000 MG IV (17:28)
[2024-02-29] MEDS: TESSALON PERLES PO ×2 (17:28→21:54)
[2024-02-29] MEDS: STERILE WATER FOR INJECTION 10 ML IV (17:28)
[2024-02-29] MEDS: CRESTOR 10 MG PO (18:32)
[2024-02-29] MEDS: MUCINEX 600 MG PO (20:31)
[2024-02-29] MEDS: COLACE 100 MG PO (21:54)
[2024-02-29] MEDS: ASPIR LOW (ENTERIC COATED) 81 MG PO (21:54)
[2024-02-29] MEDS: XANAX 0.25 MG PO (21:57)
[2024-02-29 22:30] VITALS: BP 143/75
[2024-02-29 23:30] VITALS: BP 143/75
[2024-03-01] MEDS: FLUSH (NSS) 2 FLUSH IV
[2024-03-01 06:23] VITALS: BMI 37.2
[2024-03-01] MEDS: SPIRIVA RESPIMAT 2.5 MCG 2 PUFF INH (07:23)
[2024-03-01] MEDS: VENTOLIN NEBULES 2.5 MG INH ×4 (07:24→18:05)
[2024-03-01 07:32] LABS: Hematocrit 36.3 % (37.0-47.0); Hemoglobin 12.1 g/dL (12.0-16.0); Mean Corp Hgb Conc. 33.3 g/dL (33.0-37.0); Mean Corpuscular Hgb 27.9 pg (27.0-31.0); Mean Corpuscular Volume 83.8 fL (81.0-99.0); Mean Platelet Volume 8.8 fL (7.4-10.4); Platelet Count 467 10^3/uL (130-400); Red Blood Cell Count 4.33 10^6/uL (4.20-5.40); Red Cell Dist. Width 13.4 % (11.5-14.5); White Blood Cell Count 10.4 10^3/uL (4.8-10.8)
[2024-03-01 07:50] LABS: Blood Urea Nitrogen 33 mg/dl (7-17); Carbon Dioxide 25 mmol/L (22-30); Chloride 101 mmol/L (98-107); Estimated Creatinine Clearance 66 ml/min; Glucose 141 mg/dl (70-99); Potassium 5.4 mmol/L (3.5-5.1); Sodium 140 mmol/L (135-145); eGFR > 60.00
[2024-03-01 08:15] LABS: % Basophils 0.5 % (0-2); % Immature Granulocytes 6.4 % (0-0.5); % Lymphocytes 8.4 % (20.5-51.1); % Monocytes 3.6 % (1.7-9.3); % Neutrophils 81.1 % (42.2-75.2); Absolute Basophils 0.1 10^3/uL (0-0.2); Absolute Immature Granulocytes 0.7 10^3/uL (0-0.05); Absolute Lymphocytes 0.9 10^3/uL (1.2-3.4); Absolute Monocytes 0.4 10^3/uL (0.1-0.6); Absolute Neutrophils 8.4 10^3/uL (1.4-6.5); Nucleated Red Blood Cells % 0.2 %
[2024-03-01] MEDS: ROBITUSSIN 200 MG PO ×4 (08:16→21:48)
[2024-03-01] MEDS: DECADRON 4 MG IV ×3 (08:17→23:27)
[2024-03-01] MEDS: ZITHROMAX 500 MG PO (08:17)
[2024-03-01] MEDS: HEPARIN 5000 UNITS SC ×2 (08:17→20:56)
[2024-03-01] MEDS: TESSALON PERLES 200 MG PO ×3 (08:18→21:48)
[2024-03-01] MEDS: MUCINEX 600 MG PO ×2 (08:18→20:56)
[2024-03-01] MEDS: VITAMIN D3 (cholecalciferol) 50 MCG PO (08:18)
[2024-03-01] MEDS: SENOKOT 8.6 MG PO ×2 (08:18→20:56)
[2024-03-01] MEDS: LASIX 20 MG PO (08:19)
[2024-03-01] MEDS: LAMICTAL 200 MG PO ×2 (08:24→20:56)
[2024-03-01] MEDS: NORVASC 5 MG PO ×2 (08:24→20:56)
[2024-03-01] MEDS: APRESOLINE 25 MG PO ×2 (08:24→20:59)
[2024-03-01] MEDS: LOPRESSOR 100 MG PO ×2 (08:24→20:56)
[2024-03-01] MEDS: EFFEXOR XR 150 MG PO ×2 (08:24→20:59)
[2024-03-01] MEDS: ABILIFY 2 MG PO (08:24)
[2024-03-01 08:29] VITALS: BP 151/78
[2024-03-01] MEDS: LOKELMA 10 GRAM PO (09:18)
--- NOTE | 2024-03-01 11:39 | W.PN.HOSP.TC ---
Today's Communication/Plan
-
monitor vitals
see plan
cw cough meds
not much change in steroids today
Continue abx
lokelma
Assessment / Plan
Assessment / Plan
# Left basilar bcabyfseu-qrukiyesa-bzavinpv
associated acute hypoxic respiratory insufficiency
-Patient was on 2-3 L oxygen; wean oxygen as tolerated. now on room air
Still has significant cough, decreased Mucinex and Robitussin. Continue with Tessalon Perles
-COVID-negative x 2.
-Check sputum culture if able
-CW Ceftriaxone/azithromycin
# Acute COPD exacerbation
-DuoNebs every 6 hours
cw decadron to 4 Q8
-Mucinex, tessalon pearls
-Continue Incruse Ellipta
Mild hyperkalemia
Monitor; lokelma
fall 02/26; hit her head
mechanical fall
VS stable; denies dizziness.mild headache. no bruising. CT head neg for bleed
Essential hypertension
-Continue metoprolol, hydralazine, amlodipine
-Not compliant with aspirin, continue
Hyperlipidemia
-Continue statin
Anxiety/depression
-Continue venlafaxine, Ativan, Lamictal, aripiprazole
Former smoker
Chronic lower extremity edema
-Continue Lasix
Full code
DVT prophylaxis�heparin
General: No Apparent Distress
HEENT: Moist Mucous Membranes
Respiratory: Wheezes (BL) and Non Labored Respirations; Negative Accessory Resp Muscle Use
Cardiac: Regular Rhythm and S1/S2
GI: Soft
Neuro: AO x 3
Anticipated Discharge: 24 - 48 hours
Subjective/Interval History
-
Date of Service: March 01, 2024
denies pain
Objective Data
-
Labs:
Laboratory Results
03/01/24
05:41
WBC 10.4
Hgb 12.1
Hct 36.3 L
Plt Count 467 H
Sodium 140
Potassium 5.4 H
Chloride 101
Carbon Dioxide 25
BUN 33 H
Creatinine 0.8
Glucose 141 H
Calcium 9.0
Vital Signs:
Vital Signs
Temp Pulse Resp BP Pulse Ox
98 F 72 14 151/78 95
03/01/24 08:29 03/01/24 10:56 03/01/24 10:56 03/01/24 08:29 03/01/24 08:29
I&O
02/29/24 03/01/24 03/02/24
06:59 06:59 06:59
Intake Total 2400 / 2400 3300 / 3300
Balance 2400 / 2400 3300 / 3300
[2024-03-01 16:35] VITALS: BP 144/73
[2024-03-01] MEDS: CRESTOR 10 MG PO (17:08)
[2024-03-01] MEDS: ROCEPHIN 1000 MG IV (17:09)
[2024-03-01] MEDS: STERILE WATER FOR INJECTION 10 ML IV (17:09)
[2024-03-01] MEDS: ASPIR LOW (ENTERIC COATED) 81 MG PO (21:48)
[2024-03-01] MEDS: COLACE 100 MG PO (21:48)
[2024-03-01] MEDS: XANAX 0.25 MG PO (21:57)
[2024-03-01 23:20] VITALS: BP 135/70
[2024-03-02 06:52] VITALS: BP 159/77
[2024-03-02] MEDS: VENTOLIN NEBULES 2.5 MG INH ×4 (07:24→19:23)
[2024-03-02] MEDS: SPIRIVA RESPIMAT 2.5 MCG 2 PUFF INH (07:25)
[2024-03-02] MEDS: TESSALON PERLES 200 MG PO ×3 (08:25→21:54)
[2024-03-02] MEDS: LAMICTAL 200 MG PO ×2 (08:25→21:53)
[2024-03-02] MEDS: EFFEXOR XR 150 MG PO ×2 (08:25→21:51)
[2024-03-02] MEDS: ZITHROMAX 500 MG PO (08:25)
[2024-03-02] MEDS: ROBITUSSIN 200 MG PO ×4 (08:25→21:55)
[2024-03-02] MEDS: VITAMIN D3 (cholecalciferol) 50 MCG PO (08:25)
[2024-03-02] MEDS: SENOKOT 8.6 MG PO ×2 (08:26→21:52)
[2024-03-02] MEDS: LASIX 20 MG PO (08:26)
[2024-03-02] MEDS: NORVASC 5 MG PO ×2 (08:26→21:52)
[2024-03-02] MEDS: LOPRESSOR 100 MG PO ×2 (08:26→21:53)
[2024-03-02] MEDS: ABILIFY 2 MG PO (08:26)
[2024-03-02] MEDS: MUCINEX 600 MG PO ×2 (08:26→21:51)
[2024-03-02] MEDS: APRESOLINE 25 MG PO ×2 (08:27→21:52)
[2024-03-02] MEDS: HEPARIN 5000 UNITS SC ×2 (08:27→21:55)
[2024-03-02] MEDS: DECADRON 4 MG IV ×3 (08:27→23:06)
[2024-03-02 08:39] LABS: % Basophils 0.3 % (0-2); % Immature Granulocytes 4.3 % (0-0.5); % Monocytes 4.3 % (1.7-9.3); % Neutrophils 84.1 % (42.2-75.2); Absolute Immature Granulocytes 0.4 10^3/uL (0-0.05); Absolute Lymphocytes 0.7 10^3/uL (1.2-3.4); Absolute Monocytes 0.4 10^3/uL (0.1-0.6); Absolute Neutrophils 8.5 10^3/uL (1.4-6.5); Hematocrit 36.4 % (37.0-47.0); Hemoglobin 12.2 g/dL (12.0-16.0); Mean Corp Hgb Conc. 33.5 g/dL (33.0-37.0); Mean Corpuscular Hgb 27.1 pg (27.0-31.0); Mean Corpuscular Volume 80.7 fL (81.0-99.0); Mean Platelet Volume 8.9 fL (7.4-10.4); Nucleated Red Blood Cells % 0 %; Platelet Count 478 10^3/uL (130-400); Red Blood Cell Count 4.51 10^6/uL (4.20-5.40); Red Cell Dist. Width 13.8 % (11.5-14.5); White Blood Cell Count 10.1 10^3/uL (4.8-10.8)
[2024-03-02 09:12] LABS: Blood Urea Nitrogen 33 mg/dl (7-17); Calcium 8.9 mg/dl (8.4-10.2); Carbon Dioxide 23 mmol/L (22-30); Chloride 101 mmol/L (98-107); Estimated Creatinine Clearance 66 ml/min; Glucose 146 mg/dl (70-99); Sodium 139 mmol/L (135-145); eGFR > 60.00
--- NOTE | 2024-03-02 11:15 | W.PN.HOSP.TC ---
Today's Communication/Plan
-
Monitor vital signs
see plan
Slowly improving
Likely transition to oral steroids tomorrow
Continue with cough medications
Continue with steroids, nebs
Assessment / Plan
Assessment / Plan
# Left basilar uduintgdn-zxzdpuxbc-kcohmgwh
associated acute hypoxic respiratory insufficiency
-Patient was on 2-3 L oxygen; wean oxygen as tolerated. now on room air
Still has significant cough, decreased Mucinex and Robitussin. Continue with Tessalon Perles
-COVID-negative x 2.
-Check sputum culture if able
-CW Ceftriaxone/azithromycin
# Acute COPD exacerbation
-DuoNebs every 6 hours
cw decadron to 4 Q8
still with wheezing but getting better
-Mucinex, tessalon pearls
-Continue Incruse Ellipta
Mild hyperkalemia
Monitor; lokelma
fall 02/26; hit her head
mechanical fall
VS stable; denies dizziness.mild headache. no bruising. CT head neg for bleed
Essential hypertension
-Continue metoprolol, hydralazine, amlodipine
-Not compliant with aspirin, continue
Hyperlipidemia
-Continue statin
Anxiety/depression
-Continue venlafaxine, Ativan, Lamictal, aripiprazole
Former smoker
Chronic lower extremity edema
-Continue Lasix
Full code
DVT prophylaxis�heparin
General: No Apparent Distress
HEENT: Moist Mucous Membranes
Respiratory: Wheezes (BL) and Non Labored Respirations; Negative Accessory Resp Muscle Use
Cardiac: Regular Rhythm and S1/S2
GI: Soft
Neuro: AO x 3
Anticipated Discharge: Within 24 hours
Subjective/Interval History
-
Date of Service: March 02, 2024
still has cough and LEA at times
Objective Data
-
Labs:
Laboratory Results
03/02/24
07:13
WBC 10.1
Hgb 12.2
Hct 36.4 L
Plt Count 478 H
Sodium 139
Potassium 5.0
Chloride 101
Carbon Dioxide 23
BUN 33 H
Creatinine 0.8
Glucose 146 H
Calcium 8.9
Vital Signs:
Vital Signs
Temp Pulse Resp BP Pulse Ox
97.5 F 71 16 159/77 97
03/02/24 06:52 03/02/24 11:09 03/02/24 11:09 03/02/24 08:27 03/02/24 11:09
I&O
03/01/24 03/02/24 03/03/24
06:59 06:59 06:59
Intake Total 3300 / 3300 1560 / 1560
Balance 3300 / 3300 1560 / 1560
[2024-03-02 16:00] VITALS: BP 142/73
--- NOTE | 2024-03-02 16:25 | CHAP ---
Visited [facility] at 3:05. She is grateful for the progress she has made at , and looks forward to going home. Emotional and spiritual support provided.
[2024-03-02] MEDS: CRESTOR 10 MG PO (17:02)
[2024-03-02] MEDS: ROCEPHIN 1000 MG IV (17:02)
[2024-03-02] MEDS: STERILE WATER FOR INJECTION 10 ML IV (17:02)
[2024-03-02] MEDS: ASPIR LOW (ENTERIC COATED) 81 MG PO (21:53)
[2024-03-02] MEDS: COLACE 100 MG PO (21:54)
[2024-03-02] MEDS: XANAX 0.25 MG PO (22:00)
[2024-03-02 23:23] VITALS: BP 130/71
[2024-03-03 06:59] LABS: % Basophils 0.3 % (0-2); % Immature Granulocytes 3.6 % (0-0.5); % Lymphocytes 7.2 % (20.5-51.1); % Monocytes 3.4 % (1.7-9.3); % Neutrophils 85.5 % (42.2-75.2); Absolute Immature Granulocytes 0.3 10^3/uL (0-0.05); Absolute Lymphocytes 0.7 10^3/uL (1.2-3.4); Absolute Monocytes 0.3 10^3/uL (0.1-0.6); Absolute Neutrophils 7.8 10^3/uL (1.4-6.5); Hematocrit 35.2 % (37.0-47.0); Hemoglobin 12.1 g/dL (12.0-16.0); Mean Corp Hgb Conc. 34.4 g/dL (33.0-37.0); Mean Corpuscular Hgb 28.5 pg (27.0-31.0); Mean Platelet Volume 9.2 fL (7.4-10.4); Nucleated Red Blood Cells % 0 %; Platelet Count 396 10^3/uL (130-400); Red Blood Cell Count 4.24 10^6/uL (4.20-5.40); Red Cell Dist. Width 13.7 % (11.5-14.5); White Blood Cell Count 9.1 10^3/uL (4.8-10.8)
[2024-03-03 07:00] VITALS: BP 140/66
[2024-03-03] MEDS: SPIRIVA RESPIMAT 2.5 MCG 2 PUFF INH (07:11)
[2024-03-03] MEDS: VENTOLIN NEBULES 2.5 MG INH (07:11)
[2024-03-03 07:18] LABS: Blood Urea Nitrogen 30 mg/dl (7-17); Calcium 8.9 mg/dl (8.4-10.2); Carbon Dioxide 27 mmol/L (22-30); Chloride 101 mmol/L (98-107); Estimated Creatinine Clearance 66 ml/min; Glucose 135 mg/dl (70-99); Potassium 5.1 mmol/L (3.5-5.1); Sodium 138 mmol/L (135-145); eGFR > 60.00
[2024-03-03 08:16] VITALS: BP 140/66
[2024-03-03] MEDS: ZITHROMAX 500 MG PO (09:17)
[2024-03-03] MEDS: ROBITUSSIN 200 MG PO ×2 (09:17→12:04)
[2024-03-03] MEDS: EFFEXOR XR 150 MG PO (09:17)
[2024-03-03] MEDS: LOPRESSOR 100 MG PO (09:17)
[2024-03-03] MEDS: DECADRON 4 MG IV (09:18)
[2024-03-03] MEDS: HEPARIN 5000 UNITS SC (09:18)
[2024-03-03] MEDS: APRESOLINE 25 MG PO (09:18)
[2024-03-03] MEDS: VITAMIN D3 (cholecalciferol) 50 MCG PO (09:19)
[2024-03-03] MEDS: MUCINEX 600 MG PO (09:19)
[2024-03-03] MEDS: TESSALON PERLES 200 MG PO (09:19)
[2024-03-03] MEDS: SENOKOT 8.6 MG PO (09:19)
[2024-03-03] MEDS: LASIX 20 MG PO (09:19)
[2024-03-03] MEDS: ABILIFY 2 MG PO (09:19)
[2024-03-03] MEDS: NORVASC 5 MG PO (09:20)
[2024-03-03] MEDS: LAMICTAL 200 MG PO (09:21)
--- NOTE | 2024-03-03 10:23 | CM ---
Patient seen at bedside.
IMM explained & signed. In chart.
Spoke to Nicole Delgado at [facility] & updated
PLAN: Home with [facility]
Son to transport
[facility]
Fax #: [phone]
--- NOTE | 2024-03-03 11:06 | W.PN.HOSP.TC ---
Today's Communication/Plan
-
monitor vitals
See plan
Continue antibiotics, transition to oral
Transition steroids to oral
Discharge today
Time of discharge 38 minutes
Assessment / Plan
Assessment / Plan
# Left basilar fwajvrbqe-ioezpongh-ckptdkqp
associated acute hypoxic respiratory insufficiency
-Patient was on 2-3 L oxygen; wean oxygen as tolerated. now on room air
Still has significant cough, decreased Mucinex and Robitussin. Continue with Tessalon Perles
-COVID-negative x 2.
-Check sputum culture if able
-CW Ceftriaxone/azithromycin, Switch to p.o. antibiotics on discharge
# Acute COPD exacerbation
-DuoNebs
cw decadron to 4 Q8, Transition to p.o. steroids with taper
still with wheezing but getting better
-Mucinex, tessalon pearls
-Continue Incruse Ellipta
Mild hyperkalemia
Monitor; lokelma
fall 02/26; hit her head
mechanical fall
VS stable; denies dizziness.mild headache. no bruising. CT head neg for bleed
Essential hypertension
-Continue metoprolol, hydralazine, amlodipine
-Not compliant with aspirin, continue
Hyperlipidemia
-Continue statin
Anxiety/depression
-Continue venlafaxine, Ativan, Lamictal, aripiprazole
Former smoker
Chronic lower extremity edema
-Continue Lasix
Full code
DVT prophylaxis�heparin
General: No Apparent Distress
HEENT: Moist Mucous Membranes
Respiratory: Wheezes (BL) and Non Labored Respirations; Negative Accessory Resp Muscle Use
Cardiac: Regular Rhythm and S1/S2
GI: Soft
Neuro: AO x 3
Anticipated Discharge: Today
Subjective/Interval History
-
Date of Service: March 03, 2024
Denies pain
Objective Data
-
Labs:
Laboratory Results
03/03/24
05:29
WBC 9.1
Hgb 12.1
Hct 35.2 L
Plt Count 396
Sodium 138
Potassium 5.1
Chloride 101
Carbon Dioxide 27
BUN 30 H
Creatinine 0.8
Glucose 135 H
Calcium 8.9
Vital Signs:
Vital Signs
Temp Pulse Resp BP Pulse Ox
98.1 F 60 16 140/66 97
03/03/24 07:00 03/03/24 09:20 03/03/24 07:14 03/03/24 09:20 03/03/24 07:14
I&O
03/02/24 03/03/24 03/04/24
06:59 06:59 06:59
Intake Total 0 / 1560 1919
Balance 1560 / 1560 1919
--- NOTE | 2024-03-03 11:18 | W.DCSUMMARY ---
Discharge Summary
Discharge Data
Date of Admission: 02/23/24
Date of Discharge: 03/03/24
-
Pending Results: No
Hospital Course
68-year-old female with past medical history of COPD, essential hypertension, anxiety/depression, chronic lower extremity edema came to the hospital with left basilar pneumonia and associated acute hypoxic respite insufficiency. Patient initially
required oxygen however she slowly continued to improve and was on room air prior to discharge. She was treated initially with IV antibiotic which were later transitioned to oral antibiotics prior to discharge. She also appeared to be in COPD
exacerbation for which she was initially treated with IV steroids which were later changed to p.o. prednisone with taper prior to discharge. She was instructed to follow-up with pulmonary outpatient. Once her symptoms continue to improve, she was
then discharged home with instructions to follow-up with all her physicians outpatient.
Discharge Plan
-
Patient Disposition: Home (Routine Discharge)
Discharge Diagnosis/Procedures: Left basilar dpwlagrgz-nzdmmbgzd-bmncsvrq
Acute hypoxic respiratory insufficiency
Acute COPD exacerbation
Diet: As tolerated
Activity: As tolerated
Driving Restrictions: As prior to admission
Bathing Restrictions: None
Referrals:
Alesia Adams, DO [Active] - in one to two weeks
UNKNOWN - PT DOES,NOT KNOW [Family Provider] - in less than 1 week
Prescriptions:
New
guaifenesin 600 mg Tablet Extended Release 12hr
600 mg PO Q12 Qty: 0 0RF
guaifenesin 100 mg/5 mL Liquid
200 mg PO QID Qty: 0 0RF
sennosides [Senna Laxative] 8.6 mg Tablet
8.6 mg PO BID Qty: 0 0RF
benzonatate 100 mg Capsule
200 mg PO TID Qty: 14 0RF
cefdinir 300 mg capsule
300 mg PO BID 3 Days Qty: 6 0RF
Probiotic 10 billion cell capsule
10,000 mmu cells PO DAILY Qty: 7 0RF
prednisone 10 mg Tablet
See Rx Instructions .ROUTE .COMPLEX Qty: 30 0RF
Rx Instructions:
Take By Mouth:
40 mg daily x3 days, 30 mg daily x3 days,
20 mg daily x3 days, 10 mg daily x3 days.
azithromycin 500 mg tablet
500 mg PO DAILY 3 Days Qty: 3 0RF
Continued
furosemide 40 MG tablet
20 mg PO DAILY
metoprolol tartrate 100 MG tablet
100 mg PO BID
venlafaxine [Effexor XR] 150 MG capsule,extended release 24hr
150 mg PO BID
lamotrigine 100 MG tablet
200 mg PO BID
rosuvastatin 10 MG tablet
10 mg PO QPM
aripiprazole 2 MG tablet
2 mg PO DAILY
hydralazine 25 MG tablet
25 mg PO BID
amlodipine 5 MG tablet
5 mg PO BID
Incruse Ellipta 62.5 MCG blister with device
1 puff inhalation R DAILY
aspirin 81 MG tablet,delayed release (DR/EC)
81 mg PO HS
albuterol sulfate 1 PUFF HFA aerosol inhaler
2 puff inhalation R QIDPRN PRN (Reason: sob)
acetaminophen 325 MG tablet
650 mg PO Q4HPRN PRN (Reason: mild pain)
alprazolam 0.25 MG tablet
0.25 mg PO HSPRN PRN (Reason: sleep)
docusate sodium 100 MG capsule
100 mg PO HS
cholecalciferol (vitamin D3) 2,000 UNITS tablet
2,000 units PO DAILY
Discharge Orders:
Discharge Patient (As Directed); Ordered 03/03/24
Ordered By: Flo Hebert
Discharge Date and Time
Discharge Date/Time: 03/03/24 13:48
Print Language: AFGHAN
[2024-03-03] MEDS: FLUAD (65 yr+) 2024-2025 FORMULA 0.5 ML IM (12:04)
[2024-03-03 13:30] VITALS: BP 129/71
== END 2024-03-03 13:48 | disposition home or self-care (01) | DRG 190 ==
LOC: 2 NORTH 17:25
PROVIDERS: Physician Assistant; ADMITTING PHYSICIAN Hospitalist; ATTENDING PHYSICIAN Internal Medicine; EMERGENCY PHYSICIAN Emergency Medicine
PROC: 3E02340 Introduction of Influenza Vaccine into Muscle, Percutaneous Approach (ICD-10-PCS; 2024-03-03)
DX: J44.1 Chronic obstructive pulmonary disease with (acute) exacerbation (principal); J18.9 Pneumonia, unspecified organism; J44.0 Chronic obstructive pulmonary disease with (acute) lower respiratory infection; F32.A Depression, unspecified; F41.9 Anxiety disorder, unspecified; E87.5 Hyperkalemia; R60.0 Localized edema; R09.02 Hypoxemia; W19.XXXA Unspecified fall, initial encounter; Y93.9 Activity, unspecified; Y92.239 Unspecified place in hospital as the place of occurrence of the external cause; R06.89 Other abnormalities of breathing; I10 Essential (primary) hypertension; E78.5 Hyperlipidemia, unspecified; Z23 Encounter for immunization; Z11.52 Encounter for screening for COVID-19; Z79.82 Long term (current) use of aspirin; Z87.891 Personal history of nicotine dependence
CPT/HCPCS: 70450; 71046; 80048; 80053; 83880; 84484; 85025; 87502; 87811; 90662; 93005; 94640; 96365; 96375; 99285; G0008

== ENCOUNTER → 2024-04-04 12:53 | Outpatient (REF) | payer OTHER, SELFPAY | LOC: DHSLP 12:53 | PROVIDERS: ATTENDING PHYSICIAN Internal Medicine; FAMILY PHYSICIAN Family Medicine | DX: G47.33 Obstructive sleep apnea (adult) (pediatric) (principal) | CPT/HCPCS: 95800 ==

== ENCOUNTER → 2024-06-12 11:13 | Outpatient (REF) | payer OTHER, SELFPAY | LOC: RCS 11:13 | PROVIDERS: ATTENDING PHYSICIAN Internal Medicine Cardiovascular Disease; FAMILY PHYSICIAN Family Medicine | DX: R00.2 Palpitations (principal) | CPT/HCPCS: 93306 ==

== ENCOUNTER → 2025-01-20 13:00 | Outpatient (REF) | payer OTHER, SELFPAY | LOC: DHSLP 13:00 | PROVIDERS: ATTENDING PHYSICIAN Internal Medicine; FAMILY PHYSICIAN Family Medicine | DX: G47.30 Sleep apnea, unspecified (principal); R06.83 Snoring | CPT/HCPCS: 95800 ==